=== PATIENT | female | born 1985 | race Caucasian/White ===

== ENCOUNTER 2018-03-01 05:47 | Emergency (ER) | payer MEDICAID ==
[~2018-03-01] VITALS: Ht 162.6 cm; Wt 78.6 kg
[~2018-03-01 05:47] MED LIST: RIVA10TA PO
[2018-03-01] MEDS ORDERED: ONDANSETRON ODT 4 MG PO ONE (06:30)
[2018-03-01] MEDS ORDERED: SODIUM CHLORIDE FLUSH 10ML SYR IVF ONE (06:30)
[2018-03-01] MEDS ORDERED: SODIUM CHLORIDE 0.9% 1,000ML IVBOLUS ONE (06:30)
[2018-03-01] MEDS ORDERED: ONDANSETRON ODT 4 MG ONE (06:39)
[2018-03-01 07:09] LABS: ANION GAP 7 mmol/L (5-15); CALCIUM 8.5 mg/dL (8.5-10.1); CHLORIDE 104 mmol/L (98-107); CREATININE 0.58 mg/dL (0.55-1.02)
[2018-03-01 07:10] LABS: ALBUMIN 3.6 g/dL (3.4-5.0)
[2018-03-01 09:09] VITALS: BP 95/45
== END 2018-03-01 10:03 | disposition home or self-care (01) ==
LOC: ED 07:25
DX: O26.891 Other specified pregnancy related conditions, first trimester (principal); Z3A.08 8 weeks gestation of pregnancy; R11.2 Nausea with vomiting, unspecified; Z86.718 Personal history of other venous thrombosis and embolism
CPT/HCPCS: 36415; 80048; 82040; 99284; Q0162; 99283

== ENCOUNTER 2018-03-17 12:11 | Emergency (ER) | payer MEDICAID ==
[~2018-03-17] VITALS: Ht 162.6 cm; Wt 78.7 kg
[2018-03-17 12:32] VITALS: BP 125/72
[2018-03-17] MEDS ORDERED: FAMOTIDINE 20 MG/2 ML ONE (13:08)
[2018-03-17] MEDS ORDERED: SODIUM CHLORIDE 0.9% 1,000ML IVBOLUS ONE (13:30)
[2018-03-17] MEDS ORDERED: SODIUM CHLORIDE FLUSH 10ML SYR IVF ONE (13:30)
[2018-03-17] MEDS ORDERED: FAMOTIDINE 20 MG/2 ML IVP ONE (13:30)
[2018-03-17] MEDS ORDERED: ONDANSETRON 2MG/ML, 2ML IVPush ONE (13:30)
[2018-03-17] MEDS ORDERED: ONDANSETRON 2MG/ML, 2ML ONE (13:39)
[2018-03-17 13:56] LABS: CULTURE INDICATED? YES; MICROSCOPIC INDICATED
[2018-03-17 14:39] LABS: ANION GAP 7 mmol/L (5-15); CHLORIDE 108 mmol/L (98-107)
[2018-03-17 14:42] LABS: ALANINE AMINOTRANSFERASE 20 U/L (12-78); ALKALINE PHOSPHATASE 46 U/L (45-117); BILIRUBIN,TOTAL 0.2 mg/dL (0.2-1.0); CREATININE 0.49 mg/dL (0.55-1.02); TOTAL PROTEIN 6.9 g/dL (6.4-8.2)
== END 2018-03-17 15:28 | disposition home or self-care (01) ==
LOC: ED 13:05
DX: O26.891 Other specified pregnancy related conditions, first trimester (principal); O21.9 Vomiting of pregnancy, unspecified; R11.0 Nausea; Z3A.10 10 weeks gestation of pregnancy
CPT/HCPCS: 36415; 80053; 81001; 87086; 96361; 96374; 96375; 99284; J2405; J7030; S0028

== ENCOUNTER 2018-04-25 20:24 | Emergency (ER) | payer MEDICAID ==
[~2018-04-25] VITALS: Ht 162.6 cm; Wt 79.4 kg
[2018-04-25 20:26] VITALS: BP 118/61
[2018-04-25] MEDS ORDERED: CLINDAMYCIN 300 MG CAPSULE ONE (20:54)
[2018-04-25] MEDS ORDERED: CLINDAMYCIN 300 MG CAPSULE PO ONE (21:00)
== END 2018-04-25 21:49 | disposition home or self-care (01) ==
LOC: ED 21:26
DX: L03.115 Cellulitis of right lower limb (principal); Z86.718 Personal history of other venous thrombosis and embolism; Z86.711 Personal history of pulmonary embolism
CPT/HCPCS: 99283

== ENCOUNTER 2018-06-01 13:32 | Emergency (ER) | payer MEDICAID ==
[~2018-06-01] VITALS: Ht 162.6 cm; Wt 82.0 kg
--- NOTE | 2018-06-01 13:33 | NUR ---
PT TO ROOM FROM L&D
--- NOTE | 2018-06-01 13:40 | NUR ---
ASSUMING PT CARE AT THIS TIME. 32 Y/O FEMALE PRESENTS TO ED WITH C/O RIGHT FLANK/RIB PAIN. "FOR ABOUT 2 DAYS I'VE HAD PAIN IN MY BACK ON THE RIGHT SIDE. NOW IT'S UNDER MY RIGHT BREAST FROM MY BACK. I'VE HAD A COUGH FOR A WHILE TOO. I'M 5 MONTHS . I'VE HAD BLOOD CLOTS BEFORE, AND A PULMONARY EMBOLISM. BUT I'M ON LOVENOX. I GIVE MYSELF A SHOT EVERYDAY." PT PLACED ON CONT PULSE OX,NIBP. EDMD BEDSIDE. NO C/O N/V/D, TRAUMA, SYNCOPE, CP,
[2018-06-01] MEDS ORDERED: SODIUM CHLORIDE FLUSH 10ML SYR IVF ONE (14:00)
[2018-06-01] MEDS ORDERED: ALBUTEROL SULFATE 2.5 MG/3 ML NPPB ONE (14:00)
[2018-06-01] MEDS ORDERED: ALBUTEROL SULFATE 2.5 MG/3 ML ONE (14:16)
--- NOTE | 2018-06-01 14:23 | NUR ---
PT REFUSED RT TREATMENT
--- NOTE | 2018-06-01 14:24 | NUR ---
PT BEING TAKEN TO IMAGING.
[2018-06-01] MEDS ORDERED: PLEASE ENTER HEIGHT AND WEIGHT MC SCH (14:30)
[2018-06-01 14:40] VITALS: BP 93/39
--- NOTE | 2018-06-01 14:40 | NUR ---
PT RESTING ON GURNEY. NO ACUTE DISTRES NOTED. NO NEEDS REQUESTED AT THIS TIME.
[2018-06-01 14:44] LABS: ALBUMIN 2.6 g/dL (3.4-5.0); ANION GAP 8 mmol/L (5-15); CALCIUM 8.4 mg/dL (8.5-10.1); CHLORIDE 105 mmol/L (98-107)
[2018-06-01 14:49] LABS: ALANINE AMINOTRANSFERASE 17 U/L (12-78); ALKALINE PHOSPHATASE 67 U/L (45-117); BILIRUBIN,TOTAL 0.5 mg/dL (0.2-1.0); CREATININE 0.47 mg/dL (0.55-1.02); TOTAL PROTEIN 7.1 g/dL (6.4-8.2)
[2018-06-01 14:59] LABS: MEAN CORPUSCULAR HEMOGLOBIN 30.9 pg (27.0-34.8); MEAN CORPUSCULAR HGB CONC 33.2 g/dL (32.4-35.8); RED BLOOD COUNT 3.58 x10^6/uL (3.82-5.3)
[2018-06-01] MEDS ORDERED: CEFTRIAXONE PMX 1GM/50ML 50 ML IVPB ONE ×2 (15:00)
[2018-06-01 15:05] LABS: BASOPHILS # (AUTO) 0.03 x10^3/uL (0-0.1); BASOPHILS % (AUTO) 0 % (0-1); EOSINOPHILS # (AUTO) 0.28 x10^3/uL (0-0.4); EOSINOPHILS % (AUTO) 3 % (1-7); LYMPHOCYTES % (AUTO) 26 % (22-44); MD SCAN; MEAN PLATELET VOLUME 9.2 fL (7.4-10.4); MONOCYTES # (AUTO) 0.25 x10^3/uL (0.2-0.8); MONOCYTES % (AUTO) 3 % (2-9); NEUTROPHILS # (AUTO) 6.13 x10^3/uL (1.8-6.8); NEUTROPHILS % (AUTO) 67 % (42-75); PLATELET COUNT 283 x10^3/uL (130-400)
[2018-06-01] MEDS ORDERED: CEFTRIAXONE PMX 1GM/50ML 0 ML ONE (15:10)
[2018-06-01] MEDS ORDERED: CEFTRIAXONE 1,000 MG ONE (15:54)
[2018-06-01] MEDS ORDERED: CEFTRIAXONE 1,000 MG IM ONE (16:00)
--- NOTE | 2018-06-01 16:18 | NUR ---
LATE ENTRY FOR 1600 Patient/Caregiver given discharge instructions and they have confirmed that they understand the instructions. Patient ambulatory with steady gait. PT LEFT WITH ALL PERSONAL BELONGINGS.
== END 2018-06-01 16:17 | disposition home or self-care (01) ==
LOC: ED 16:10
DX: O99.511 Diseases of the respiratory system complicating pregnancy, first trimester (principal); Z3A.20 20 weeks gestation of pregnancy; Z86.718 Personal history of other venous thrombosis and embolism
CPT/HCPCS: 36415; 71046; 80053; 83690; 85025; 96372; 99284; J0696

== ENCOUNTER 2018-10-06 07:38 | Inpatient (IN) | payer MEDICAID ==
[~2018-10-06] VITALS: Ht 162.6 cm; Wt 78.2 kg
[~2018-10-06 07:38] MED LIST changes: -RIVA10TA PO; +RIVA10TA2 PO
[2018-10-08] MEDS ORDERED: D5%-LACTATED RINGERS 1,000 ML IV SCH (07:36)
[2018-10-08] MEDS ORDERED: LACTATED RINGERS 1,000 ML IV SCH ×3 (07:36→10:44)
[2018-10-08] MEDS ORDERED: OXYTOCIN 30U/ 0.9% NaCL 500ML 500 ML IV PRN (07:36)
[2018-10-08] MEDS ORDERED: ONDANSETRON 2MG/ML, 2ML IVPush PRN (08:00)
[2018-10-08] MEDS ORDERED: TERBUTALINE 1 MG/ML, 1ML IVPush PRN (08:00)
[2018-10-08] MEDS ORDERED: METOCLOPRAMIDE 5 MG/ML, 2ML IVPush PRN (08:00)
[2018-10-08] MEDS ORDERED: PENICILLIN GK 5,000,000 UNITS in DEXTROSE 5% 100 ML IVPB ONE (08:00)
[2018-10-08] MEDS ORDERED: SODIUM CITRATE/CITRIC ACID 15 ML UDC PO PRN (08:00)
[2018-10-08] MEDS ORDERED: FENTANYL PF 100 MCG/2ML IV PRN (08:00)
[2018-10-08] MEDS ORDERED: FENTANYL PF 100 MCG/2ML IVPush PRN (08:00)
[2018-10-08] MEDS ORDERED: LIDOCAINE 1%, 20ML ONE (08:04)
[2018-10-08] MEDS ORDERED: NEWBORN KIT ONE (08:04)
[2018-10-08] MEDS ORDERED: OXYTOCIN 30U/ 0.9% NaCL 500ML 500 ML ONE ×2 (08:05→14:05)
[2018-10-08] MEDS ORDERED: MISOPROSTOL 200 MCG TABLET ONE (08:05)
[2018-10-08] MEDS: OXYTOCIN 30U/ 0.9% NaCL 500ML 500 ML IV ONE ×2 (08:24→14:13)
[2018-10-08] MEDS ORDERED: FENTANYL/BUPIV./NS/PF 250 ML EPIDCONT SCH ×3 (08:27→10:44)
[2018-10-08] MEDS ORDERED: PLEASE ENTER ALLERGIES MC SCH (08:30)
[2018-10-08 08:38] LABS: AMPHETAMINE SCREEN, URINE Negative (Negative); BARBITURATE SCREEN, URINE Negative (Negative); BENZODIAZEPINE SCREEN, URINE Negative (Negative); CANNABINOID SCREEN, URINE Negative (Negative); COCAINE SCREEN, URINE Negative (Negative); METHADONE SCREEN, URINE Positive (Negative); OPIATE SCREEN, URINE Negative (Negative)
[2018-10-08 08:47] LABS: BASOPHILS # (AUTO) 0.03 x10^3/uL (0-0.1); BASOPHILS % (AUTO) 0 % (0-1); EOSINOPHILS # (AUTO) 0.15 x10^3/uL (0-0.4); EOSINOPHILS % (AUTO) 2 % (1-7); LYMPHOCYTES # (AUTO) 2.08 x10^3/uL (1-3.4); LYMPHOCYTES % (AUTO) 23 % (22-44); MD NO; MEAN CORPUSCULAR HEMOGLOBIN 31.5 pg (27.0-34.8); MEAN CORPUSCULAR HGB CONC 33.4 g/dL (32.4-35.8); MEAN CORPUSCULAR VOLUME 94.3 fL (80-100); MEAN PLATELET VOLUME 9.4 fL (7.4-10.4); MONOCYTES # (AUTO) 0.73 x10^3/uL (0.2-0.8); MONOCYTES % (AUTO) 8 % (2-9); NEUTROPHILS # (AUTO) 6.18 x10^3/uL (1.8-6.8); NEUTROPHILS % (AUTO) 67 % (42-75); PLATELET COUNT 410 x10^3/uL (130-400); RED BLOOD COUNT 3.73 x10^6/uL (3.82-5.3); RED CELL DISTRIBUTION WIDTH 14.8 % (9.6-15.2)
[2018-10-08 08:53] LABS: INTERNATIONAL NORMALIZED RATIO 0.95 (0.93-1.1)
[2018-10-08] MEDS ORDERED: FENTANYL PF 500 MCG, BUPIVACAINE/PF 0.5%, 30ML 62.5 ML in SODIUM CHLORIDE 0.9% 177.5 ML EPIDCONT SCH (09:30)
[2018-10-08] MEDS ORDERED: BUPIVACAINE 0.25% ONE (10:47)
[2018-10-08] MEDS ORDERED: NALOXONE 0.4 MG/ML, 1ML IVPush PRN ×2 (11:00)
[2018-10-08] MEDS ORDERED: LACTATED RINGERS 1,000 ML IVBOLUS PRN ×2 (11:00)
[2018-10-08] MEDS ORDERED: EPHEDRINE 50 MG/ML, 1ML IVPush PRN ×2 (11:00)
[2018-10-08] MEDS ORDERED: PENICILLIN GK 2,500,000 UNITS in DEXTROSE 5% 100 ML IVPB SCH (12:00)
[2018-10-08] MEDS ORDERED: TERBUTALINE 1 MG/ML, 1ML ONE (12:31)
[2018-10-08] MEDS ORDERED: MAGNESIUM HYDROXIDE 8%, 30ML UDC PO PRN (13:00)
[2018-10-08] MEDS ORDERED: ONDANSETRON 2MG/ML, 2ML IV PRN (13:00)
[2018-10-08] MEDS ORDERED: MEASLES,MUMPS&RUBELLA VACC/PF 0.5 ML SQ-VACC PRN (13:00)
[2018-10-08] MEDS ORDERED: MISOPROSTOL 200 MCG TABLET PR PRN (13:00)
[2018-10-08] MEDS ORDERED: CALCIUM CARBONATE 500 MG TAB.CHEW PO PRN (13:00)
[2018-10-08] MEDS ORDERED: RHOGAM FROM BLOOD BANK 1 NOTE EA IM/IV ONE (13:00)
[2018-10-08] MEDS ORDERED: DIPH,PERTUSS(ACELL),TET VAC/PF NC IM-VACC PRN (13:00)
[2018-10-08] MEDS ORDERED: ACETAMINOPHEN 325 MG TABLET PO PRN ×2 (13:00)
[2018-10-08] MEDS ORDERED: IBUPROFEN 600 MG TABLET ONE (14:05)
[2018-10-08] MEDS: IBUPROFEN 800 MG TABLET PO PRN ×2 (14:11→23:08)
[2018-10-08] MEDS ORDERED: IBUPROFEN 800 MG TABLET ONE (14:11)
[2018-10-08] MEDS: OXYTOCIN 30U/ 0.9% NaCL 500ML 500 ML IV SCH ×2 (14:12→22:35)
[2018-10-08 15:14] VITALS: BP 142/88
[2018-10-08] MEDS ORDERED: METHADONE 40 MG TABLET.SOL PO SCH (15:30)
[2018-10-08 16:00] VITALS: BP 127/79
[2018-10-08] MEDS: ENOXAPARIN 40 MG/0.4 ML SQ SCH (20:05)
[2018-10-08] MEDS: DOCUSATE 100 MG CAPSULE PO PRN (20:09)
[2018-10-08] MEDS: ACETAMINOPHEN 325 MG TABLET PO PRN (20:09)
[2018-10-08 21:10] VITALS: BP 126/65
[2018-10-08 23:05] LABS: BASOPHILS # (AUTO) 0.07 x10^3/uL (0-0.1); BASOPHILS % (AUTO) 1 % (0-1); EOSINOPHILS # (AUTO) 0.15 x10^3/uL (0-0.4); EOSINOPHILS % (AUTO) 2 % (1-7); LYMPHOCYTES # (AUTO) 2.05 x10^3/uL (1-3.4); LYMPHOCYTES % (AUTO) 23 % (22-44); MD NO; MEAN CORPUSCULAR HEMOGLOBIN 31.2 pg (27.0-34.8); MEAN CORPUSCULAR VOLUME 94.5 fL (80-100); MEAN PLATELET VOLUME 9.5 fL (7.4-10.4); MONOCYTES # (AUTO) 0.71 x10^3/uL (0.2-0.8); MONOCYTES % (AUTO) 8 % (2-9); NEUTROPHILS # (AUTO) 5.95 x10^3/uL (1.8-6.8); NEUTROPHILS % (AUTO) 67 % (42-75); PLATELET COUNT 356 x10^3/uL (130-400); RED BLOOD COUNT 3.58 x10^6/uL (3.82-5.3); RED CELL DISTRIBUTION WIDTH 14.6 % (9.6-15.2)
[2018-10-09] VITALS: BP 136/84
[2018-10-09 05:35] VITALS: BP 124/83
[2018-10-09] MEDS: ACETAMINOPHEN 325 MG TABLET PO PRN (05:41)
[2018-10-09 08:11] VITALS: BP 134/88
[2018-10-09] MEDS ORDERED: METHADONE 40 MG TABLET.SOL PO SCH (09:00)
[2018-10-09] MEDS: METHADONE INTENSOL 10 MG/ML ORAL CONC PO SCH (09:03)
[2018-10-09] MEDS: DOCUSATE 100 MG CAPSULE PO PRN (09:03)
[2018-10-09] MEDS: PRENATAL VIT/IRON/FA 1 EACH TABLET PO SCH (09:03)
[2018-10-09] MEDS: IBUPROFEN 800 MG TABLET PO PRN ×2 (11:20→19:49)
[2018-10-09] MEDS: ENOXAPARIN 40 MG/0.4 ML SQ SCH (19:49)
[2018-10-09 19:53] VITALS: BP 132/87
[2018-10-10] MEDS: IBUPROFEN 800 MG TABLET PO PRN (05:20)
[2018-10-10 07:40] VITALS: BP 134/89
[2018-10-10] MEDS: PRENATAL VIT/IRON/FA 1 EACH TABLET PO SCH (07:55)
[2018-10-10] MEDS: ACETAMINOPHEN 325 MG TABLET PO PRN (07:56)
[2018-10-10] MEDS: DOCUSATE 100 MG CAPSULE PO PRN (07:56)
[2018-10-10] MEDS: METHADONE INTENSOL 10 MG/ML ORAL CONC PO SCH (09:08)
[2018-10-10] MEDS ORDERED: IBUP-1223 PO (10:54)
[2018-10-10] MEDS ORDERED: ENOX40SY4 SQ (10:54)
== END 2018-10-10 10:50 | disposition home or self-care (01) | DRG 807 ==
LOC: LDIP 10-08 06:50 → 2NW 10-08 16:00
PROVIDERS: ADMIT Obstetrics & Gynecology; ATTEND Obstetrics & Gynecology
PROC: 10E0XZZ Delivery of Products of Conception, External Approach (ICD-10-PCS; principal; 2018-10-08)
PROC: 3E0R3BZ Introduction of Anesthetic Agent into Spinal Canal, Percutaneous Approach (ICD-10-PCS; 2018-10-08)
PROC: 00HU33Z Insertion of Infusion Device into Spinal Canal, Percutaneous Approach (ICD-10-PCS; 2018-10-08)
DX: O99.824 Streptococcus B carrier state complicating childbirth (principal); Z37.0 Single live birth; O99.324 Drug use complicating childbirth; O99.344 Other mental disorders complicating childbirth; F32.9 Major depressive disorder, single episode, unspecified; F11.90 Opioid use, unspecified, uncomplicated; Z3A.39 39 weeks gestation of pregnancy
CPT/HCPCS: 36415; 80307; 82803; 85025; 85610; 85730; 86850; 86900; 90715; G0378; J1650; J2540; J2590; J3010; J7120

== ENCOUNTER 2018-12-09 12:17 | Emergency (ER) | payer MEDICAID ==
[~2018-12-09] VITALS: Ht 162.6 cm; Wt 88.5 kg
[~2018-12-09 12:17] MED LIST changes: +ENOX40SY4 SQ; +IBUP-1223 PO
--- NOTE | 2018-12-09 13:12 | NUR ---
TO ROOM FROM LOBBY. NAD.
--- NOTE | 2018-12-09 13:17 | NUR ---
Pt ambulates with steady gait and balance to room from [facility]. NADN. No obvious defecits observed. Pt states, "I have a history of blood clots, I take Lovenox daily, but I have been out for two days. I always have clots in my legs. I had a pulmonary embolism in 2014." Pt has spouse and infant with her at bedside. Pt changing into hospital gown.
--- NOTE | 2018-12-09 13:25 | NUR ---
PT TO NIBP, CONT PULSE OX. BLANKET PROVIDE, AT BEDSIDE.
[2018-12-09 13:46] LABS: BASOPHILS # (AUTO) 0.04 x10^3/uL (0-0.1); BASOPHILS % (AUTO) 1 % (0-1); EOSINOPHILS # (AUTO) 0.15 x10^3/uL (0-0.4); EOSINOPHILS % (AUTO) 4 % (1-7); LYMPHOCYTES # (AUTO) 1.78 x10^3/uL (1-3.4); LYMPHOCYTES % (AUTO) 49 % (22-44); MD NO; MEAN CORPUSCULAR HGB CONC 33.3 g/dL (32.4-35.8); MEAN CORPUSCULAR VOLUME 93.2 fL (80-100); MEAN PLATELET VOLUME 8.3 fL (7.4-10.4); MONOCYTES # (AUTO) 0.49 x10^3/uL (0.2-0.8); MONOCYTES % (AUTO) 14 % (2-9); NEUTROPHILS # (AUTO) 1.15 x10^3/uL (1.8-6.8); NEUTROPHILS % (AUTO) 32 % (42-75); PLATELET COUNT 314 x10^3/uL (130-400); RED CELL DISTRIBUTION WIDTH 14.7 % (9.6-15.2)
[2018-12-09 13:56] LABS: ALBUMIN 3.3 g/dL (3.4-5.0); ANION GAP 6 mmol/L (5-15); CALCIUM 9.2 mg/dL (8.5-10.1); CHLORIDE 108 mmol/L (98-107); CREATININE 0.67 mg/dL (0.55-1.02)
--- NOTE | 2018-12-09 14:37 | NUR ---
PT RESTING ON JHONNY, UPDATED ON POC. NO NEEDS AT THIS TIME
[2018-12-09 15:52] VITALS: BP 90/33
--- NOTE | 2018-12-09 16:36 | NUR ---
Patient/Caregiver given discharge instructions and they have confirmed that they understand the instructions. Patient ambulatory with steady gait.
== END 2018-12-09 16:39 | disposition home or self-care (01) ==
LOC: ED 13:34
DX: I82.511 Chronic embolism and thrombosis of right femoral vein (principal); I82.532 Chronic embolism and thrombosis of left popliteal vein; I87.2 Venous insufficiency (chronic) (peripheral)
CPT/HCPCS: 36415; 80048; 82040; 85025; 93970; 99284

== ENCOUNTER 2019-01-13 16:12 | Emergency (ER) | payer MEDICAID ==
[~2019-01-13] VITALS: Ht 162.6 cm; Wt 93.8 kg
[2019-01-13 16:15] VITALS: BP 123/53
== END 2019-01-13 16:52 | disposition home or self-care (01) ==
LOC: ED 16:36
DX: Z86.718 Personal history of other venous thrombosis and embolism (principal); Z76.0 Encounter for issue of repeat prescription
CPT/HCPCS: 99283